=== PATIENT | female | born 1935 | race Caucasian/White ===

== ENCOUNTER 2023-10-20 11:37 | Emergency (ER) | payer MEDICARE ==
[~2023-10-20] VITALS: Ht 170.2 cm; Wt 65.8 kg
--- NOTE | 2023-10-20 11:40 | NUR ---
RECEIVED PT 88 YRS FEMALE HERE S/P TRIP AND FALLE C/O LUCERATION SKIN APRATION ON FACE CAME ACCOMPANY BY DANIELE
--- NOTE | 2023-10-20 12:20 | NUR ---
pt fully awake and alert NO WEEKNEES OR DIFFECITY
[2023-10-20] MEDS ORDERED: TDAP [DIPH/PERTUSSIS/TET] 0.5 ML VIAL IM ONE (12:30)
[2023-10-20] MEDS: TDAP [DIPH/PERTUSSIS/TET] 0.5 ML VIAL IM ONE (12:33)
[2023-10-20] MEDS ORDERED: LIDOCAINE 1%-EPI 1:100,000 20 ML VIAL ONE (12:35)
[2023-10-20] MEDS: LIDOCAINE 1%-EPI 1:100,000 20 ML VIAL TP ONE (12:37)
--- NOTE | 2023-10-20 13:09 | NUR ---
DR. LUU AT BED SIDE
--- NOTE | 2023-10-20 14:00 | NUR ---
CLEAN WOUND DONE BY EMT
--- NOTE | 2023-10-20 14:30 | NUR ---
Patient discharged to home in stable condition. Written and verbal after care instructions given. Patient verbalizes understanding of instruction.
[2023-10-20 14:55] VITALS: BP 120/70; TEMP 98.2; O2SAT 100
== END 2023-10-20 14:56 | disposition home or self-care (01) ==
LOC: ER 11:57
DX: S01.21XA Laceration without foreign body of nose, initial encounter (principal); I10 Essential (primary) hypertension; Z88.2 Allergy status to sulfonamides; Z88.5 Allergy status to narcotic agent; W01.0XXA Fall on same level from slipping, tripping and stumbling without subsequent striking against object, initial encounter; Y93.89 Activity, other specified; Y92.89 Other specified places as the place of occurrence of the external cause; Y99.8 Other external cause status
CPT/HCPCS: 12015; 70486; 90471; 90715; 99285; A6403; J3490

== ENCOUNTER 2023-10-26 09:12 | Emergency (ER) | payer MEDICARE ==
[~2023-10-26] VITALS: Ht 170.2 cm; Wt 65.8 kg
[2023-10-26 09:20] VITALS: BP 127/65; TEMP 97.9
[2023-10-26 09:38] VITALS: O2SAT 99
== END 2023-10-26 09:38 | disposition home or self-care (01) ==
LOC: ER 09:18
DX: S01.81XD Laceration without foreign body of other part of head, subsequent encounter (principal); I10 Essential (primary) hypertension; Z88.2 Allergy status to sulfonamides; Z88.8 Allergy status to other drugs, medicaments and biological substances; Z48.02 Encounter for removal of sutures; X58.XXXD Exposure to other specified factors, subsequent encounter